=== PATIENT | female | born 1980 | race Two or more races ===

== ENCOUNTER 2021-06-09 20:56 | Emergency (ER) | payer OTHER ==
[~2021-06-09] VITALS: Ht 157.5 cm; Wt 86.2 kg
== END 2021-06-09 22:59 | disposition home or self-care (01) ==
LOC: ER 20:56
DX: S93.402A Sprain of unspecified ligament of left ankle, initial encounter (principal); W19.XXXA Unspecified fall, initial encounter; Y92.018 Other place in single-family (private) house as the place of occurrence of the external cause

== ENCOUNTER 2023-01-19 12:25 | Emergency (ER) | payer OTHER ==
[~2023-01-19] VITALS: Ht 157.5 cm; Wt 88.5 kg
== END 2023-01-19 18:46 | disposition home or self-care (01) ==
LOC: ER 12:25
DX: J10.1 Influenza due to other identified influenza virus with other respiratory manifestations (principal); H66.93 Otitis media, unspecified, bilateral; Z20.822 Contact with and (suspected) exposure to COVID-19

== ENCOUNTER 2024-04-29 12:59 | Emergency (ER) | payer OTHER ==
[~2024-04-29] VITALS: Ht 157.5 cm; Wt 90.7 kg
[2024-04-29] MEDS ORDERED: KETOROLAC TROMETHAMINE 60 MG VIAL IM ONE ×2 (17:29→17:30)
[2024-04-29] MEDS ORDERED: DEXAMETHASONE SODIUM PHOSPHATE 4 MG/ML VIAL ONE (17:29)
[2024-04-29] MEDS ORDERED: DEXAMETHASONE SODIUM PHOSPHATE 4 MG/ML VIAL IM ONE (17:30)
[2024-04-29] MEDS ORDERED: IBU800 MG PO (17:31)
[2024-04-29] MEDS ORDERED: BACLOFEN10 MG PO (17:37)
== END 2024-04-29 17:47 | disposition home or self-care (01) ==
LOC: ER 13:01
DX: M54.42 Lumbago with sciatica, left side (principal)